=== PATIENT | female | born 1945 | race Caucasian/White ===

== ENCOUNTER 2021-11-04 07:00 | Day surgery (SDC) | payer OTHER ==
[~2021-11-04 07:00] MED LIST: ADULT LOW DOSE81 M1 PO; COZAAR100 MG PO; CRESTOR20 MG PO; GABAPENTIN300 M2 PO; PLAVIX75 MG PO; TOPROL XL100 M1 PO
== END 2021-11-04 20:15 | disposition home or self-care (01) ==
LOC: CIR.AMB 07:00
PROVIDERS: ATTEND Surgery
DX: C50.912 Malignant neoplasm of unspecified site of left female breast (principal)

== ENCOUNTER 2025-03-16 10:02 | Emergency (ER) | payer OTHER ==
[~2025-03-16] VITALS: Ht 167.6 cm; Wt 51.7 kg
[2025-03-16] MEDS ORDERED: BARIUM SULFATE 450 ML ORAL.SUSP PO ONE (10:44)
[2025-03-16] MEDS ORDERED: LACTULOSE 20 G/30 ML BLIST.PACK ONE (10:44)
[2025-03-16] MEDS ORDERED: LACTULOSE 20 G/30 ML BLIST.PACK PO ONE (10:45)
[2025-03-16 13:01] LABS: CALCIUM 9.4 mg/dL (8.5-10.1); CREATININE SERUM 0.86 mg/dL (0.55-1.02); GFR 63.33; POTASSIUM 4.12 mEq/L (3.5-5.1)
[2025-03-16 13:17] LABS: PH,URINE 6.5 (5.0-8.0); URINE APPEARANCE Cloudy; URINE BILIRRUBIN Negative (NEGATIVE); URINE BLOOD Small; URINE COLOR Yellow; URINE GLUCOSE Negative (NEGATIVE); URINE KETONE Negative (NEGATIVE); URINE LEUKOCYTE Large; URINE NITRATE Positive; URINE PROTEIN Negative (NEGATIVE); URINE UROBILINOGEN 0.2 E.U./dl
[2025-03-16 13:21] LABS: URINE EPITHELIAL CELLS 3.1 uL (0.0-38.8); URINE RBC 18.5 uL (0.0-20.8); URINE WBC 1187.9 uL (0.0-23.2)
[2025-03-16 13:31] LABS: URINE BACTERIA > 9821.5 uL (0.0-1933); URINE CAST 1.03 uL (0.0-1.40)
[2025-03-16 14:10] LABS: HEMATOCRIT 40.3 % (34.1-44.9); HEMOGLOBIN 12.9 g/dL (11.2-15.7); MEAN CORPUSCULAR HEMOGLOBIN 29.4 pg (25.6-32.2); RED BLOOD COUNT 4.39 M/uL (3.93-5.22)
[2025-03-16 14:11] LABS: BASO % 0.6 % (0.1-1.2); EOS % 0.4 % (0.7-7.0); LYMPH % 17.3 % (19.3-53.1); MONO % 9.6 % (4.7-12.5); NEUT % 71.9 % (34.0-71.1)
[2025-03-16 14:15] LABS: PLATELET COUNT 203 K/uL (163-369); RED CELL DISTRIBUTION WIDTH 14.4 % (11.6-14.4)
[2025-03-16 14:27] LABS: LYMPH # 0.94 (1.18-3.74); NEUT # 3.92 (1.56-6.13)
[2025-03-16 14:28] LABS: EOS # 0.02 (0.04-0.54); MONO # 0.52 (0.24-0.82)
== END 2025-03-16 17:32 | disposition home or self-care (01) ==
LOC: ER 10:02
PROVIDERS: Emergency Medicine
DX: K59.00 Constipation, unspecified (principal); I10 Essential (primary) hypertension; Z91.018 Allergy to other foods
CPT/HCPCS: 36415; 74177; 99284; Q9965